=== PATIENT | female | born 1930 | race Caucasian/White ===

== ENCOUNTER 2016-09-29 21:07 | Observation (INO) | payer MEDICARE, OTHER ==
[2016-09-29 21:28] LABS: BLOOD UREA NITROGEN 19 mg/dL (7-17); CALCIUM 9.2 mg/dL (8.4-10.2); CHLORIDE 97 mmol/L (98-107); GLUCOSE 113 mg/dL (70-100); POTASSIUM 3.4 mmol/L (3.5-5.1); SODIUM 136 mmol/L (137-145)
[2016-09-29 21:30] LABS: BASOPHILS 0.4 % (0.0-2.0); EOSINOPHILS# 0.3 X 10^3uL (0.0-0.4); HEMATOCRIT 38.8 % (36.0-48.0); HEMOGLOBIN 12.9 g/dL (12.0-16.0); LYMPHOCYTES 49.6 % (20.0-40.0); MEAN CELL VOLUME 92.9 fL (80.0-100.0); MEAN CORPUS. HGB CONCENTRATION 33.3 g/dL (32.0-36.0); MEAN PLATELET VOLUME 9.1 fL (7.4-10.4); MONOCYTES 7.2 % (2.0-10.0); MONOCYTES# 0.7 X 10^3uL (0.2-1.0); NEUTROPHILS 39.8 % (54.0-75.0); PLATELET COUNT 348 X 10^3uL (130-440); RED BLOOD COUNT 4.18 X 10^6uL (4.20-6.10); RED CELL DISTRIBUTION WIDTH 13.4 % (11.5-14.5)
[2016-09-29 21:40] LABS: TROPONIN I < 0.012 ng/mL (0.00-0.034)
[2016-09-29] MEDS ORDERED: HOME MEDICATION LIST NEEDED 1 EA EACH MISC ONE (23:08)
[2016-09-29] MEDS ORDERED: ACETAMINOPHEN 325 MG TABLET PO PRN (23:13)
--- NOTE | 2016-09-29 23:29 | ER NURSING DOCUMENTATION ---
Nurse's Notes [facility] Name:Annie Peter Age:85 yrs Sex:Female :1930 Arrival Date:09/29/2016 Time:21:07 BedTrauma-A Private MD:Kristian Yepez Diagnosis:Syncope Presentation: 09/29 21:12 No acute neurological deficit is noted. sc1 21:13 Presenting complaint: Patient states: [place] [employer] and [place] sc1 began feeling sleepy. Transition of care: patient was not received from another setting of care. 21:13 Acuity: ALEJANDRA 3 sc1 21:13 Method Of Arrival: EMS: 410 sc1 Triage Assessment: 21:24 The onset of the patients symptoms was less than three hours ago. General: Appears in sc1 no apparent distress, well developed, well nourished, well groomed, Behavior is cooperative, drowsy, pleasant. Pain: Denies pain. Neuro: No deficits noted. Historical: - Allergies: No known drug Allergies; - Home Meds: 1. losartan oral 2. gabapentin oral 3. Requip Oral 4. Vitamins - PMHx: Restless legs; - PSHx: Appendectomy; - Ebola Screening: : Patient negative for fever greater than or equal to 101.5 degrees Fahrenheit, and additional compatible Ebola Virus Disease symptoms. Patient denies exposure to infectious person. Patient denies travel to an Ebola-affected area in the 21 days before illness onset. No symptoms or risks identified at this time. . - Immunization history: Pneumococcal vaccine is up to date, Flu Vaccine < 1 year. - Social history: Smoking status: Patient states was never smoker of tobacco. Patient uses alcohol but reports only rare drinking. Patient/guardian denies using street drugs, IV drugs, marijuana. Screenin:29 Infectious Disease Risk None. Abuse screen: Denies threats or abuse. Nutritional sc1 screening: No deficits noted. Vital Signs: 21:13 BP 114 / 58; Pulse 66; Resp 16; Temp 97.1; Pulse Ox 96% on R/A; Weight 65.77 kg; Height em1 5 ft. 4 in. (162.56 cm); Pain 0/10; 21:30 BP 118 / 50 (auto/); sc1 21:32 Pulse Ox 92% ; sc1 21:32 Pulse 74; sc1 21:46 BP 84 / 59 (auto/); sc1 21:47 Pulse 75 MON; Resp 19; Pulse Ox 93% ; sc1 22:30 BP 111 / 71 (auto/); sc1 22:32 Pulse 83 MON; Resp 22; Pulse Ox 91% ; sc1 23:27 BP 134 / 72; Pulse 70; Resp 19; Pulse Ox 94% on R/A; Pain 0/10; lb 21:13 Body Mass Index 24.89 (65.77 kg, 162.56 cm) em1 NIH Stroke Scale Scores: 21:13 NIHSS Score: 0 sc1 ED Course: 21:11 Patient arrived in ED. jl 21:11 Kristian Wright MD is Attending Physician. mary 21:12 Michelle Bolanos, RN is Primary Nurse. sc1 21:19 Triage completed. sc1 21:24 Notified ED Physician of patient's arrival and chief complaint. Dr. Wright notified. Arm sc1 band placed on Bed in low position Call Light in Reach Gowned HOB Elevated Side rails up x2. Labs ordered per protocol. Drawn by EMS. 21:25 Valuables Remains with patient. Pulse ox on. NIBP on. sc1 21:25 Oxygen. sc1 21:30 EKG done. (by ED staff). em1 21:43 EKG attached sc1 22:44 He Sapp MD is Admitting Physician. mary 22:59 Kristian Yepez is Private Physician. em2 Administered Medications: 21:26 Drug: NS 0.9% 1000 ml; Route: IV; Rate: bolus; Site: right antecubital; Delivery: sc1 [place] Tubing; 23:26 Follow up: IV Status: Completed infusion; IV Intake: 1000ml lb Intake: 23:26 IV: 1000ml; Total: 1000ml. lb Outcome: 22:45 Decision to Admit by Provider. mary 23:27 Admitted to Med/surg accompanied by nurse, via stretcher. lb 23:27 Condition: stable 23:27 Discharge Assessment: Patient awake, alert and oriented x 3. No cognitive and/or functional deficits noted. Patient verbalized understanding of disposition instructions. 23:27 Instructed on need to admit 23:28 Patient left the ED. lb NIH Stroke Scale - NIH Stroke Score Date: 09/29/2016 Time: 21:13 Total Score = 0 1a. Level of Consciousness (LOC) - 0(Alert) 1b. Level of Consciousness (LOC) (Year & Age) - 0(Both) 1c. LOC Commands (Open & Closes Eyes/Regional Account Director) - 0(Both) 2. Best Gaze (Lateral Gaze Paresis) - 0(Normal) 3. Visual Field Loss - 0(No visual loss) 4. Facial Palsy - 0(Normal) 5a. Left Arm: Motor (10-second hold) - 0(No drift) 5b. Right Arm: Motor (10-second hold) - 0(No drift) 6a. Left Leg: Motor (5-second hold ? always test supine) - 0(No drift) 6b. Right Leg: Motor (5-second hold ? always test supine) - 0(No drift) 7. Limb Ataxia (finger/nose & heel/plata ? test with eyes open) - 0(Absent) 8. Sensory Loss (pinprick arms/legs/face) - 0(Normal) 9. Best Language: Aphasia (description/naming/reading) - 0(No aphasia) 10. Dysarthria (speech clarity ? read or repeat words) - 0(Normal) 11. Extinction and Inattention (visual/tactile/auditory/spatial/personal) - 0(No abnormality) Initials: sc1 Signatures: Michelle Bolanos RN RN sc1 Kristian Wright MD MD [employer], [employer] em1 [employer]-reg, Shawna-reg em2 Rosie Huitron Jeff jl
--- NOTE | 2016-09-29 23:29 | ER PHYSICIAN DOCUMENTATION ---
Physician Documentation [facility] Name:Annie Peter Age:85 yrs Sex:Female :1930 Arrival Date:09/29/2016 Time:21:07 BedTrauma-A Private MD:Kristian Yepez ED, John Disposition: 09/29/16 22:45 Admit ordered for He Sapp. Preliminary diagnosis is Syncope. - Bed requested for Medical/Surgical. - Condition is Fair. - Problem is new. - Symptoms are unchanged. 23 HR OBS Yes HPI: 09/29 21:23 This 85 yrs old Female presents to ER via EMS with complaints of Weakness. jm 21:23 The patient presents to the emergency department with. jm 21:23 The patient has experienced syncope, became unresponsive. Onset: The symptom(s)/episode jm began/occurred just prior to arrival. Duration: The patient has had multiple episodes, that last 10 second(s). Context: the episode(s) was witnessed, by a friend. Associated injury: The patient did not suffer any apparent associated injury. Associated signs and symptoms: The patient has no apparent associated signs or symptoms. Current symptoms: Currently, the patient is not experiencing any symptoms. The patient has experienced similar episodes in the past. The patient has not recently seen a physician. Pt was playing bridge w her friends when she seemed to go unresponsive for a few seconds. She would wake up and then drift off again. . Historical: - Allergies: No known drug Allergies; - Home Meds: 1. losartan oral 2. gabapentin oral 3. Requip Oral 4. Vitamins - PMHx: Restless legs; - PSHx: Appendectomy; - Ebola Screening: : Patient negative for fever greater than or equal to 101.5 degrees Fahrenheit, and additional compatible Ebola Virus Disease symptoms. Patient denies exposure to infectious person. Patient denies travel to an Ebola-affected area in the 21 days before illness onset. No symptoms or risks identified at this time. . - Immunization history: Pneumococcal vaccine is up to date, Flu Vaccine < 1 year. - Social history: Smoking status: Patient states was never smoker of tobacco. Patient uses alcohol but reports only rare drinking. Patient/guardian denies using street drugs, IV drugs, marijuana. ROS: 21:38 Constitutional: Positive for fatigue, Negative for fever. jm 21:38 Eyes: Negative for blurry vision, visual disturbance. 21:38 ENT: Negative for rhinorrhea, sinus congestion, sinus pain, sore throat. 21:38 Cardiovascular: Negative for chest pain, palpitations. 21:38 Respiratory: Negative for cough, shortness of breath. 21:38 Abdomen/GI: Negative for abdominal pain, nausea, vomiting, diarrhea. 21:38 MS/extremity: Negative for tenderness, warmth. 21:38 Skin: Negative for rash, swelling. 21:38 Neuro: Positive for syncope. 21:38 Psych: Negative for anxiety, depression. 21:38 All other systems are negative. Exam: 21:38 Abdomen/GI: Bowel sounds: normal, Palpation: abdomen is soft and non-tender. jm 21:38 Constitutional: The patient appears alert, awake, comfortable. 21:38 Eyes: Pupils: equal, round, and reactive to light and accomodation, Extraocular movements: intact throughout. 21:38 Cardiovascular: Rate: normal, Rhythm: regular. 21:38 Respiratory: Respirations: normal, Breath sounds: are normal. 21:38 Abdomen/GI: Bowel sounds: normal, Palpation: abdomen is soft and non-tender. 21:38 Musculoskeletal/extremity: ROM: no acute changes, Circulation is intact in all extremities. Sensation intact. 21:38 Skin: Appearance: Color: pink. 21:38 Neuro: Mentation: is normal, Memory: is normal. 21:38 Psych: Behavior/mood is pleasant, cooperative, Affect is calm. Vital Signs: 21:13 BP 114 / 58; Pulse 66; Resp 16; Temp 97.1; Pulse Ox 96% on R/A; Weight 65.77 kg; Height em1 5 ft. 4 in. (162.56 cm); Pain 0/10; 21:30 BP 118 / 50 (auto/); sc1 21:32 Pulse Ox 92% ; sc1 21:32 Pulse 74; sc1 21:46 BP 84 / 59 (auto/); sc1 21:47 Pulse 75 MON; Resp 19; Pulse Ox 93% ; sc1 22:30 BP 111 / 71 (auto/); sc1 22:32 Pulse 83 MON; Resp 22; Pulse Ox 91% ; sc1 23:27 BP 134 / 72; Pulse 70; Resp 19; Pulse Ox 94% on R/A; Pain 0/10; lb 21:13 Body Mass Index 24.89 (65.77 kg, 162.56 cm) em1 NIH Stroke Scale Scores: 21:13 NIHSS Score: 0 sc1 MDM: 21:11 Patient medically screened. 21:43 EKG [facility] 22:32 Differential Diagnosis: cerebrovascular accident, idiopathic syncope, vasovagal episode. 22:40 Data reviewed: vital signs, nurses notes, lab test result(s), EKG, and as a result, I will admit patient. Test interpretation: by ED physician or midlevel provider: ECG. Counseling: I had a detailed discussion with the patient and/or guardian regarding: the historical points, exam findings, and any diagnostic results supporting the discharge/admit diagnosis, lab results, the need for further work-up and treatment in the hospital. ECG:. Physician consultation: He Sapp MD was called at 22:41, was contacted at 22:41, regarding admission, and will see patient tomorrow. Admission orders: after a detailed discussion of the patient's condition and case, the admit orders are written by me. ED course: Pt here for syncope. BP's have gone up and down a but since her arrival, but her mental status for me has been normal. She is 0 on a stroke scale and states she feels fine. Her and the pt state that this has happened multiple times. Sometimes the doctor admits and sometimes she is let go. Given that she is with friends that cannot drive her back and are worried about her, I feel admission is warranted. . 09/29 21:33 Order name: CBC AUTO DIF, MDIF/RMOR IF IND; Complete Time: 22:14 [facility] 09/29 21:34 Order name: BASIC METABOLIC PANEL; Complete Time: 22:14 [facility] 09/29 21:41 Order name: TROPONIN I; Complete Time: 22:14 [facility] 09/30 08:38 Order name: CBC AUTO DIF, MDIF/RMOR IF IND [facility] 09/30 09:25 Order name: COMPREHENSIVE METABOLIC PANEL [facility] 09/30 09:25 Order name: THYROID STIMULATING HORMONE [facility] 09/30 09:26 Order name: FREE T4 [facility] 09/29 21:12 Order name: 12-lead EKG; Complete Time: :27 09/29 21:12 Order name: Continuous Cardiac Monitoring; Complete Time: 21:27 09/29 21:12 Order name: I & O; Complete Time: 09/29 21:12 Order name: NPO; Complete Time: 09/29 21: Order name: Pulse Ox Continuous; Complete Time: EC:40 Rhythm is regular. QRS [place] is Normal. [place] interval is normal. QRS interval is normal. QT interval is normal. No Q waves. T waves are Normal. Dispensed Medications: Drug: NS 0.9% 1000 ml; Route: IV; Rate: bolus; Site: right antecubital; Delivery: sc1 [place] Tubing; :26 Follow up: IV Status: Completed infusion; IV Intake: 1000ml lb NIH Stroke Scale - NIH Stroke Score Date: 09/29/2016 Time: Total Score = 0 1a. Level of Consciousness (LOC) - 0(Alert) 1b. Level of Consciousness (LOC) (Year & Age) - 0(Both) 1c. LOC Commands (Open & Closes Eyes/Patent Agent) - 0(Both) 2. Best Gaze (Lateral Gaze Paresis) - 0(Normal) 3. Visual Field Loss - 0(No visual loss) 4. Facial Palsy - 0(Normal) 5a. Left Arm: Motor (10-second hold) - 0(No drift) 5b. Right Arm: Motor (10-second hold) - 0(No drift) 6a. Left Leg: Motor (5-second hold ? always test supine) - 0(No drift) 6b. Right Leg: Motor (5-second hold ? always test supine) - 0(No drift) 7. Limb Ataxia (finger/nose & heel/plata ? test with eyes open) - 0(Absent) 8. Sensory Loss (pinprick arms/legs/face) - 0(Normal) 9. Best Language: Aphasia (description/naming/reading) - 0(No aphasia) 10. Dysarthria (speech clarity ? read or repeat words) - 0(Normal) 11. Extinction and Inattention (visual/tactile/auditory/spatial/personal) - 0(No abnormality) Initials: pa1 Signatures: Michelle Bolanos RN RN pa1 Kristian Wright MD MD jm Bollock, Lynda lb
[2016-09-29] MEDS ORDERED: NORMAL SALINE 1,000 ML IV SCH (23:45)
[2016-09-30 03:22] VITALS: O2SAT 98
[2016-09-30 06:47] VITALS: BP 157/79; PULSE 67; RESP 16; TEMP 98.1
[2016-09-30 08:32] LABS: BASOPHILS 0.4 % (0.0-2.0); EOSINOPHILS 3.1 % (0.0-6.0); EOSINOPHILS# 0.2 X 10^3uL (0.0-0.4); HEMOGLOBIN 12.9 g/dL (12.0-16.0); LYMPHOCYTES 29.6 % (20.0-40.0); LYMPHOCYTES# 2.4 X 10^3uL (0.8-3.8); MEAN CELL VOLUME 92.7 fL (80.0-100.0); MEAN CORPUS. HGB CONCENTRATION 33.8 g/dL (32.0-36.0); MEAN CORPUSCULAR HEMOGLOBIN 31.4 pg (29.0-35.0); MEAN PLATELET VOLUME 8.3 fL (7.4-10.4); MONOCYTES 7.4 % (2.0-10.0); MONOCYTES# 0.6 X 10^3uL (0.2-1.0); NEUTROPHILS 59.5 % (54.0-75.0); NEUTROPHILS# 4.9 X 10^3uL (2.6-6.7); PLATELET COUNT 303 X 10^3uL (130-440); RED CELL DISTRIBUTION WIDTH 13.4 % (11.5-14.5); WHITE BLOOD COUNT 8.1 X 10^3uL (3.9-10.7)
--- NOTE | 2016-09-30 08:35 | DC SUMMARY: IM Note ---
Discharge Summary: IM/Peds Provider: Date of Admission: 09/29/16 Admitting Provider: CLEO LAMAR MD Attending Provider: CLEO LAMAR MD Discharging Provider: CLEO LAMAR MD Primary Care Provider: Discharge Date: 09/30/16 - Diagnosis (1) Syncope Status: Acute Qualifiers: Syncope type: vasovagal syncope Qualified Code(s): R55 - Syncope and collapse (2) QUINN on CPAP Status: Chronic (3) Hypertension, benign Status: Chronic (4) RLS (restless legs syndrome) Status: Chronic (5) Leukocytosis Status: Acute Qualifiers: Leukocytosis type: lymphocytosis Qualified Code(s): D72.820 - Lymphocytosis (symptomatic) Hospital Course: See observation H&P/summary. - Time Spent with Patient Total time spent providing and/or coordinating discharge services: Discharge - Patient/Caregiver Discharge Instructions Activity Level: As tolerated. No strenuous activities until reevaluated by PCP. Diet: Cardiac. Follow up: MONIQUE FRANCIS [Primary Care Provider] - 7 Days Overall discharge status: patient is back to baseline Print Language: PORTUGUESE Disposition: HOME, SELF-CARE Discharge Summary Data Procedures and tests throughout hospitalization: Pending Orders 09/30/16 07:35 UA W/O MICRO - SAMPSON, CUL IF IND [URINE] Urgent 09/30/16 08:20 CBC AUTO DIF, MDIF/RMOR IF IND [HEM] Urgent FREE T4 [CHEM] Urgent TSH [THYROID STIMULATING HORMONE] [CHEM] Urgent cmp [COMPREHENSIVE METABOLIC PANEL] [CHEM] Urgent Labs on day of discharge: Labs from last 24 hours 09/30/16 09/30/16 08:20 08:20 WBC Pending RBC Pending Hgb Pending Hct Pending MCV Pending MCH Pending MCHC Pending RDW Pending Plt Count Pending MPV Pending Neutrophils % Pending Lymphocytes % Pending Eosinophils % Pending Basophils % Pending Neutrophils # Pending Lymphocytes # Pending Monocytes Pending Monocytes # Pending Eosinophils # Pending Basophils # Pending Sodium Pending Potassium Pending Chloride Pending Carbon Dioxide Pending BUN Pending Creatinine Pending GFR Calculation Pending Glucose Pending Calcium Pending Total Bilirubin Pending AST Pending ALT Pending Alkaline Phosphatase Pending Total Protein Pending Albumin Pending Albumin/Globulin Ratio Pending TSH Pending Free T4 Pending IM: Discharge Physical Exam - I&O/Vital Signs I&O: Intake & Output 09/29/16 09/30/16 09/30/16 21:59 05:59 13:59 Intake Total 265 Balance 265 Weight 70.5 kg Intake: IV 240 Right Antecubital 240 Oral 25 Other: Urine Appearance Clear Urine Color Yellow Voiding Method Toilet Vital Signs: Last Vital Signs Temp 36.7 C 09/30/16 06:47 Pulse 67 09/30/16 06:47 Resp 16 09/30/16 06:47 BP 157/79 09/30/16 06:47 Pulse Ox 98 09/30/16 06:47 Oxygen Flow Rate 1 Oxygen Delivery Method Nasal Cannula - Constitutional General appearance: Absent: acute distress - Head Head exam: Present: atraumatic, normocephalic - Eye Eye exam: Present: EOMI, PERRL - ENT ENT exam: Present: mucous membranes moist - Neck Neck exam: Present: full ROM - Respiratory Respiratory exam: Present: CTAB. Absent: rales, rhonchi, wheezes - Cardiovascular Cardiovascular exam: Present: RRR, S1, S2, systolic murmur. Absent: S3, S4 - GI/Abdominal GI/Abdominal exam: Present: normal bowel sounds, soft. Absent: organomegaly, tenderness - Extremities Exam Extremities exam: Present: edema (trace ankles). Absent: calf tenderness, Shashi 's Sign - Neurological Exam Neurological exam: Present: CN II-XII intact, oriented X3, other (light touch intact). Absent: motor sensory deficit - Psychiatric Psychiatric exam: Absent: anxious, depressed - Skin Skin exam: Absent: rash - Allied Health Notes Allied health notes reviewed: nursing
[2016-09-30 08:42] LABS: BILIRUBIN, TOTAL 1.3 mg/dL (0.2-1.3); BLOOD UREA NITROGEN 16 mg/dL (7-17); CHLORIDE 102 mmol/L (98-107); CREATININE 0.8 mg/dL (0.5-1.0); GLUCOSE 89 mg/dL (70-100); POTASSIUM 3.6 mmol/L (3.5-5.1)
[2016-09-30 08:54] LABS: A/G RATIO 1.4; ALBUMIN 4.2 g/dL (3.5-5.0); ALKALINE PHOSPHATASE 61 U/L (38-126); ALT 41 U/L (9-52); AST 33 U/L (14-36); SODIUM 140 mmol/L (137-145); TOTAL PROTEIN 7.3 g/dL (6.3-8.2)
[2016-09-30] MEDS ORDERED: LOSARTAN PO SCH (09:00)
[2016-09-30] MEDS ORDERED: LOSARTAN POTASSIUM 50 MG TABLET PO SCH (09:00)
[2016-09-30] MEDS ORDERED: HYDROCHLOROTHIAZIDE 25 MG TABLET PO SCH (09:00)
[2016-09-30] MEDS ORDERED: HYDROCHLOROTHIAZIDE PO SCH (09:00)
[2016-09-30 09:23] LABS: THYROID STIMULATING HORMONE 1.75 uIU/mL (0.47-4.68)
--- NOTE | 2016-09-30 15:57 | HISTORY & PHYSICAL ---
DATE OF ADMISSION: 09/30/16 CHIEF COMPLAINT: Transient episode of unresponsiveness. HISTORY OF PRESENT ILLNESS: The patient is an 85-year-old female who lives in the [place] area. She was in her usual state of health. She is staying at the [facility] with friends overnight and had had dinner and was playing bridge with them. She did have one glass of bourbon with water. In the process of playing bridge, she suddenly became unresponsive. Per her friends, her eyes remained open and her head tipped back and she slide down in her chair. They estimated that she was unconscious for perhaps 2 minutes and did not easily arouse to voice. However, at that point, she started to come to on her own and immediately went into her turn playing bridge without any evidence of confusion or postictal state. She did not have any shaking type activities. She denied any preceding lightheadedness although she did feel a warm flush prior to the episode. She denied any palpitations. No nausea or vomiting. Once she came to, her friends had her lying down. She did not have any further symptoms until the paramedics arrived. They had her sit up in a chair and at that point she was in and out. She did not lose a pulse and she was breathing throughout her witnessed event with the paramedics. Ultimately, she was brought into the emergency department and the decision was made to admit her for further evaluation and treatment. Of note, while in the emergency department, she did not have any further symptoms but she did have some transient episodes of low blood pressure with her blood pressure dropping in the 95 systolic range for seconds at a time. There was no significant change in heart rhythm during these episodes. The patient has been well otherwise. She denies any recent illness and no fevers or chills. Again, she denies any chest pain or palpitations. No orthopnea, PND, lower extremity edema. She denies any shortness of breath or cough. No nausea or vomiting. No diarrhea. No dysuria or hematuria. No skin rashes. In terms of prior workup, she states that she has had these events on and off for at least a few years and has been through extensive evaluation for this without even arriving in a clear cause. She has had [facility] imaging although it is unclear whether this was a CT scan or an MRI scan. She has had EEG which was sleep deprived and apparently did not show any evidence of seizure activity. She has had carotid ultrasounds and echocardiograms done and has also been through a stress test. She does have known sleep apnea and has been through a formal sleep study and is on CPAP although she did not like using this. PAST MEDICAL HISTORY 1. Hypertension. 2. QUINN on CPAP. 3. Recurrent syncopal episodes which by her description have been likely attributed to vasovagal events. 4. Restless leg syndrome. 5. Thyroid nodules status post partial thyroidectomy times 2. She is not on thyroid medications. PAST SURGICAL HISTORY: Appendectomy. ALLERGIES: None. MEDICATIONS Losartan HCT at an unknown dose daily. Gabapentin 600 mg p.o. at bedtime. Requip 5 mg each night. Multivitamins. SOCIAL HISTORY: Rare alcohol. No tobacco. No recreational drug use. 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 FAMILY HISTORY: Significant for lymphoma in her mother and prostate cancer in her father. Diabetes in her brother. No early CAD. No seizure disorders. No thyroid disease as far as she is aware. REVIEW OF SYSTEMS: Pertinent positives and negatives as above. Remainder are negative. PHYSICAL EXAMINATION VITAL SIGNS: In the emergency department showed temperature of 97.1, blood pressure 114/58, pulse 66, respirations 16, 96% on room air, with a weight of 66 kg. GENERAL: Elderly female. No apparent distress. Breathing easily without use of accessory muscles. Is alert and interactive and appropriate. HEENT: Normocephalic/atraumatic. Sinuses are nontender. Pupils are equal round and reactive to light. Extraocular muscles appear intact. Full range of motion. Oropharynx is clear. NECK: Supple without lymphadenopathy or masses. No thyromegaly or nodules. CHEST: Clear to auscultation without change in tactile fremitus to percussion. CARDIAC: Regular rate and rhythm with a normal S1 and S2. I do not hear an S3 or S4. She does have a 2-3/6 holosystolic murmur with a crescendo decrescendo pattern which is best heard at the apex in the right upper sternal border without radiation to the neck. Lower extremities are with minimal edema of the bilateral ankles. Cannot feel a PMI. ABDOMEN: Positive bowel sounds. Soft, nontender, nondistended. No hepatosplenomegaly. BACK: No CVA or spinous process tenderness. EXTREMITIES: No cyanosis or clubbing but she does have some venostasis changes in her bilateral lower extremities. Calves are nontender. No cords. Negative Homans. LYMPHS: No cervical or supraclavicular lymphadenopathy. NEUROLOGIC: The patient is alert and oriented times 4. Cranial nerves 2 through 12 are grossly intact. Light touch and sensation is intact throughout. Strength is 5/5 in the bilateral lower extremities with the exception of hand flexors which are 4/5 bilaterally. LABORATORY STUDIES: White blood count 10.0 with 39.8% neutrophils and 49.6% lymphocytes. Platelet count is 348. Chemistry panel showing sodium of 136, with potassium of 3.4, chloride of 97. BUN and creatinine were 19 and 1.0 respectively. Glucose mildly elevated in the nonfasting state at 113. Troponin I negative. Calcium normal. TELEMETRY: No significant arrhythmias. ASSESSMENT AND PLAN 1. Syncopal episode: Recurrent issue for this patient. By her history, circumstance, prior events and prior extensive workup, most likely represents a vasovagal event which was triggered by food and alcohol and dehydration in the setting of high altitude yesterday. That being said, the differential remains broad. Certainly, her description of her event could be consistent with absence seizures. That being said, she has had evaluation with Neurology in the past including EEG and this was negative. This could be reassessed if she has more frequent episodes. However, with a nonformal neurologic examination, a focal neurologic process such as stroke, TIA, bleed, mass less likely and [facility] imaging was not repeated today although could be reconsidered by her primary care team. From a cardiac standpoint, we have not seen any evidence of arrhythmia. She has been through Holter monitor and event monitor in the past. However, she did not have any spells while being monitored. She could be considered for an implanted monitor although arrhythmia less likely, particularly considering the transient episodes of hypotension she had here without significant arrhythmia. From a cardiac standpoint, less likely to represent an ischemic event and her initial cardiac enzymes and EKGs were negative for such. Echocardiogram was not repeated but she does have evidence of a cardiac murmur on examination with findings consistent with aortic stenosis versus sclerosis. As she has not had an echo in at least a couple of years, it would be reasonable to repeat this. She has indicated that she would like to have this done in [place] or [place] rather than here in [place] and this is reasonable. As indicated above, this could have represented a vasovagal event and I have recommended that she stay well hydrated, focus on smaller meals particularly earlier in the evening and that she try to minimize alcohol. If she has feeling of warmth which has often preceded such events, she will try to lower her head either by sitting or lying down to try to maximize [employer] perfusion. We did discuss the possibility of medication changes including possibly stopping the diuretic component of her hypertension regimen and possibly even considering a trial of a medication such as Florinef to try to increase her intravascular volume. That being said, it sounds like at least stopping the diuretic was tried in the past and she did not tolerate this well. Based upon this, will defer further management and medication changes to her primary care physician Dr. Yepez. With regard to other potential items on the differential, she does have sleep apnea and it sounds like she does not use her CPAP consistently. That being said, a description is less consistent with hypersomnolence and falling asleep inappropriately. Likewise, without any episodes of cataplexy and with preceding symptoms such as the flushing, narcolepsy is less likely as a cause. Again, at this point, the plan is to discharge her to home. She has been receiving IV fluids gently. Laboratory studies will be rechecked in the morning to verify no significant worsening of slight abnormalities. Will check a urinalysis as well. She will follow up with her primary care physician within the next 1-2 weeks. Will consider repeat echocardiogram. I will consider further evaluation and possible medication changes as above. 2. QUINN. She will continue on sleep apnea treatment. 3. Hypertension. For now, she will continue on her losartan HCT. 4. Restless leg syndrome. She remains on Requip and gabapentin and will continue these for now. These are no felt to be clearly associated with her events. 5. Leukocytosis. Incidentally noted was a mild leukocytosis at the time of admission with a lymphocyte predominance in the setting of advanced age at 85. This can be monitored in the outpatient setting and further evaluation undertaken if there is evidence of worsening or atypical lymphocytes. 6. Vaccine status. Will screen per usual protocol. Followup with her primary care physician. 7. DVT prophylaxis. Low risk during this short observation admission and no prophylaxis undertaken other than ambulation with assistance. 8. Core status. The patient is full core/full tube. Copy to Dr. Kristian KAYE
[2016-09-30] MEDS ORDERED: NON-FORMULARY MEDICATION (Ropinirole Hcl [Requip] 4 MG) PO SCH (21:00)
[2016-09-30] MEDS ORDERED: GABAPENTIN 300 MG CAPSULE PO SCH (21:00)
[2016-09-30] MEDS ORDERED: ROPINIROLE 1 MG TABLET PO SCH (21:00)
== END 2016-09-30 08:56 | disposition home or self-care (01) ==
LOC: ER 21:07 → IN 23:14
PROVIDERS: ADMIT Internal Medicine; ATTEND Internal Medicine
DX: R55 Syncope and collapse (principal); G47.33 Obstructive sleep apnea (adult) (pediatric); G25.81 Restless legs syndrome; D72.820 Lymphocytosis (symptomatic); E04.2 Nontoxic multinodular goiter; I10 Essential (primary) hypertension; Z79.899 Other long term (current) drug therapy; Z74.3 Need for continuous supervision
CPT/HCPCS: 80048; 80053; 84439; 84443; 84484; 85025; 93005; 93010; 93041; 96360; 96361; 99217; 99219; 99285; A0425; A0427; G0378; J7030